=== PATIENT | female | born 1980 ===

== ENCOUNTER 2018-06-01 16:44 | Emergency (ER) | payer BC ==
[2018-06-01 17:04] VITALS: BMI 33.9
[2018-06-01] MEDS ORDERED: Sodium Chloride 0.9% 1,000 ML IV STA (17:07)
--- NOTE | 2018-06-01 17:21 | ED PDOC ---
Arrival/HPI - General Chief Complaint: Abdominal Pain Time Seen by Provider: 06/01/18 16:54 Historian: Patient - History of Present Illness Narrative History of Present Illness (Text): 06/01/18 17:17 38yo female iwth no pmhx who present with complaint of periumbilical pain x 7days. States she vomited the first day, pain began, but it resolved same day. Reports nausea. Describes pain as "soreness". Report normal BM. States she is having dyspepsia and flatus than usual. Denies fever, chills, urinary symptoms, chest pain, melena, hematemesis, hematochezia, sick contact, travel, any other complaint. She is s/p appendectomy. Past Medical History - Provider Review Nursing Documentation Reviewed: Yes - Cardiac Hx Cardiac Disorders: No - Pulmonary Hx Respiratory Disorders: No - Neurological Hx Neurological Disorder: No - HEENT Hx HEENT Disorder: No - Renal Hx Renal Disorder: No - Endocrine/Metabolic Hx Endocrine Disorders: No - Hematological/Oncological Hx Blood Disorders: No - Integumentary Hx Dermatological Disorder: No - Musculoskeletal/Rheumatological Hx Musculoskeletal Disorders: Yes Other/Comment: pinched nerve in neck - Gastrointestinal Hx Gastrointestinal Disorders: No - Genitourinary/Gynecological Hx Genitourinary Disorders: No - Psychiatric Hx Psychophysiologic Disorder: No Hx Substance Use: No - Surgical History Hx Appendectomy: Yes Family/Social History - Physician Review Nursing Documentation Reviewed: Yes Family/Social History: Unknown Family HX Smoking Status: Never Smoked Hx Alcohol Use: No Hx Substance Use: No Allergies/Home Meds Allergies/Adverse Reactions: Allergies No Known Allergies Allergy (Verified 06/01/18 16:46) Review of Systems - Physician Review All systems were reviewed & negative as marked: Yes - Review of Systems Constitutional: Normal Eyes: Normal ENT: Normal Respiratory: Normal Cardiovascular: Normal Gastrointestinal: Abdominal Pain, Nausea. absent: Constipation, Diarrhea, Vomiting, Hematochezia, Hematemesis Genitourinary Female: Normal Musculoskeletal: Normal Skin: Normal Neurological: Normal Endocrine: Normal Hemo/Lymphatic: Normal Psychiatric: Normal Physical Exam Vital Signs Reviewed: Yes Vital Signs Temp Pulse Resp BP Pulse Ox 06/01/18 21:45 98.2 F 78 16 110/76 98 06/01/18 20:15 98.7 F 74 18 113/68 97 06/01/18 18:29 99.4 F 110 H 18 126/90 98 06/01/18 16:47 98.0 F 80 17 122/84 97 Temperature: Afebrile Blood Pressure: Normal Pulse: Regular Respiratory Rate: Normal Appearance: Positive for: Well-Appearing, Non-Toxic, Comfortable Pain Distress: None Mental Status: Positive for: Alert and Oriented X 3 - Systems Exam Head: Present: Atraumatic, Normocephalic Pupils: Present: PERRL Extroacular Muscles: Present: EOMI Conjunctiva: Present: Normal Mouth: Present: Moist Mucous Membranes Neck: Present: Normal Range of Motion Respiratory/Chest: Present: Clear to Auscultation, Good Air Exchange. No: Respiratory Distress, Accessory Muscle Use Cardiovascular: Present: Regular Rate and Rhythm, Normal S1, S2. No: Murmurs Abdomen: Present: Tenderness (Mild periumbilical tenderness), Other (Soft). No : Distention, Peritoneal Signs, Rebound, Guarding, McBurney's Point Tender, Rovsing's Sign Present Back: Present: Normal Inspection Upper Extremity: Present: Normal Inspection. No: Cyanosis, Edema Lower Extremity: Present: Normal Inspection. No: Edema Neurological: Present: GCS=15, CN II-XII Intact, Speech Normal Skin: Present: Warm, Dry, Normal Color. No: Rashes Psychiatric: Present: Alert, Oriented x 3, Normal Insight, Normal Concentration Medical Decision Making ED Course and Treatment: 06/02/18 01:23 PT presented to ED for stated history. She was hemodynamically stable. Lab was reviewed Her pain was controlled in ED with medication. Abdominal/Pelvic CT IMPRESSION: 1. No acute findings. 2. Probable submucosal fibroid versus polyp in the endometrial canal. Ultrasound evaluation could be performed if indicated. On discusssion of the CT result, pt report history of fibroid. CXR was ordered secondary to CT finding and no obvious node was noted. This finding was DW the pt. she was given a copy of her CT and advised to f/u with her PMD for further outpt evalaution Pepcid was given for gastritis and she was referred to a GI - Lab Interpretations Lab Results: 06/01/18 17:41 06/01/18 17:41 Lab Results 06/01/18 18:28: Urine Color Yellow, Urine Appearance Clear, Urine pH 6.0, Ur Specific [place] >= 1.030, Urine Protein Negative, Urine Glucose (UA) Negative, Urine Ketones Negative, Urine Blood Negative, Urine Nitrate Negative, Urine Bilirubin Negative, Urine Urobilinogen 0.2, Ur Leukocyte Esterase Negative 06/01/18 17:41: Sodium 142, Potassium 4.0, Chloride 107, Carbon Dioxide 24, Anion Gap 16, BUN 11, Creatinine 0.8, Est GFR ( Amer) > 60, Est GFR (Non- Af Amer) > 60, Random Glucose 94, Calcium 8.9, Magnesium 1.9, Total Bilirubin 0.2, AST 21, ALT 21, Alkaline Phosphatase 68, Total Protein 7.2, Albumin 4.2, Globulin 3.0, Albumin/Globulin Ratio 1.4, Lipase 75 06/01/18 17:41: PT 11.0, INR 0.97, APTT 26.2 06/01/18 17:41: WBC 12.1 H, RBC 4.40, Hgb 11.1 L, Hct 34.9 L, MCV 79.3 L, MCH 25.2, MCHC 31.8, RDW 14.3, Plt Count 343, MPV 10.3, Gran % 65.4, Lymph % (Auto) 26.3, Crosby % (Auto) 5.5, Eos % (Auto) 2.3, Baso % (Auto) 0.5, Gran # 7.93 H, Lymph # (Auto) 3.2, Crosby # (Auto) 0.7 H, Eos # (Auto) 0.3, Baso # (Auto) 0.06 - RAD Interpretation Radiology Orders: 06/01/18 18:19 ABD & PELVIS IV CONTRAST ONLY [CT] Stat 06/01/18 20:41 CHEST PORTABLE [RAD] Stat - Medication Orders Current Medication Orders: Discontinued Medications Famotidine (Pepcid) 20 mg IVP STAT STA Stop: 06/01/18 17:08 Last Admin: 06/01/18 18:38 Dose: 20 mg IVP Administration Document 06/01/18 18:38 (Rec: 06/01/18 18:39 [email or web address]) Charges for Administration # of IVP Administrations 1 Sodium Chloride (Sodium Chloride 0.9%) 1,000 mls @ 1,000 mls/hr IV .Q1H STA Stop: 06/01/18 18:06 Last Admin: 06/01/18 17:50 Dose: 1,000 mls/hr eMAR Start Stop Document 06/01/18 17:50 SS (Rec: 06/01/18 17:50 SS [id number]) Intravenous Solution Start Date 06/01/18 Start Time 17:50 End Date 06/01/18 End time 18:50 Total Infusion Time 60 Morphine Sulfate (Morphine) 2 mg IVP STAT STA Stop: 06/01/18 20:19 Last Admin: 06/01/18 20:37 Dose: 2 mg MAR Pain Assessment Document 06/01/18 20:37 SH (Rec: 06/01/18 20:38 [email or web address] Pain Reassessment Is this a pain reassessment? No Sleep Is patient sleeping during reassessment? No Presence of Pain Presence of Pain Yes IVP Administration Document 06/01/18 20:37 SH (Rec: 06/01/18 20:38 [email or web address] Charges for Administration # of IVP Administrations 1 Ondansetron HCl (Zofran Inj) 4 mg IVP STAT STA Stop: 06/01/18 17:08 Last Admin: 06/01/18 18:40 Dose: 4 mg IVP Administration Document 06/01/18 18:40 SH (Rec: 06/01/18 18:40 [email or web address] Charges for Administration # of IVP Administrations 1 Disposition/Present on Arrival - Present on Arrival Any Indicators Present on Arrival: No History of DVT/PE: No History of Uncontrolled Diabetes: No Urinary Catheter: No History of Decub. Ulcer: No History Surgical Site Infection Following: None - Disposition Have Diagnosis and Disposition been Completed?: Yes Diagnosis: Abdominal pain Disposition: HOME/ ROUTINE Disposition Time: 21:30 Patient Plan: Discharge Condition: STABLE Discharge Instructions (ExitCare): Acute Abdomen (Belly Pain) Additional Instructions: Follow up with your Doctor/Medical Charge Entry Specialist Return to ED for any new or worsening symptoms Prescriptions: Famotidine [Pepcid] 40 mg PO DAILY #15 tab Referrals: Naresh Cardozo MD [Staff Provider] - Follow up with primary Forms: ATEME (Bulgarian)
[2018-06-01 18:11] LABS: BASO # 0.06 K/mm3 (0.0-2.0); BASO % 0.5 % (0.0-3.0); EOS # 0.3 (0.0-0.7); EOS % 2.3 % (1.5-5.0); GRAN # 7.93 (1.4-6.5); GRAN % 65.4 % (50.0-68.0); HEMOGLOBIN 11.1 g/dL (12.0-16.0); LYMPH # 3.2 (1.2-3.4); LYMPH % 26.3 % (22.0-35.0); MEAN CELL VOLUME 79.3 fl (80.0-105.0); MEAN CORPUSCULAR HEMOGLOBIN 25.2 pg (25.0-35.0); MEAN CORPUSCULAR HGB CONC 31.8 g/dl (31.0-37.0); MEAN PLATELET VOLUME 10.3 fl (7.0-11.0); MONO # 0.7 (0.1-0.6); MONO % 5.5 % (1.0-6.0); RBC 4.4 10^6/uL (3.5-6.1); RED CELL DISTRIBUTION WIDTH 14.3 % (11.5-14.5); WHITE BLOOD COUNT 12.1 10^3/ul (4.5-11.0)
[2018-06-01 18:17] LABS: INR 0.97; PARTIAL THROMBOPLASTIN TIME 26.2 Seconds (25.1-36.5)
[2018-06-01 18:20] LABS: ALB/GLOB RATIO 1.4 (1.1-1.8); ALBUMIN 4.2 g/dL (3.0-4.8); ALT/SGPT 21 U/L (7-56); AST/SGOT 21 U/L (14-36); BLOOD UREA NITROGEN 11 mg/dL (7-21); CALCIUM 8.9 mg/dL (8.4-10.5); GFR NON-AFRICAN AMERICAN > 60; LIPASE 75 U/L (23-300)
[2018-06-01 18:57] LABS: URINE BILIRUBIN NEGATIVE (NEGATIVE); URINE BLOOD NEGATIVE (NEGATIVE); URINE GLUCOSE (UA) NEGATIVE (NEGATIVE); URINE LEUKOCYTE ESTERASE NEGATIVE Leu/uL (NEGATIVE); URINE UROBILINOGEN 0.2 E.U./dL (<1 E.U./dL)
[2018-06-01 19:00] LABS: URINE APPEARANCE CLEAR (CLEAR); URINE COLOR YELLOW (YELLOW); URINE PROTEIN NEGATIVE mg/dL (<30 mg/dL)
[2018-06-01] MEDS ORDERED: Morphine 2 mg/ml ISec IVP STA (20:18)
[2018-06-01 21:46] VITALS: BP 110/76; PULSE 78; RESP 16; TEMP 98.2; O2SAT 98
--- NOTE | 2018-06-02 07:11 | CT ---
Date of service: 06/01/2018 PROCEDURE: CT Abdomen and Pelvis with contrast HISTORY: periumbilical pain COMPARISON: None. TECHNIQUE: Contrast dose: Radiation dose: Total exam DLP = 905 mGy-cm. This CT exam was performed using one or more of the following dose reduction techniques: Automated exposure control, adjustment of the mA and/or kV according to patient size, and/or use of iterative reconstruction technique. FINDINGS: LOWER THORAX: Unremarkable. LIVER: Unremarkable. No gross lesion or ductal dilatation. GALLBLADDER AND BILE DUCTS: Unremarkable. PANCREAS: Unremarkable. No gross lesion or ductal dilatation. SPLEEN: Unremarkable. ADRENALS: Unremarkable. No mass. KIDNEYS AND URETERS: Unremarkable. No hydronephrosis. No solid mass. VASCULATURE: Unremarkable. No aortic aneurysm. BOWEL: Unremarkable. No obstruction. No gross mural thickening. APPENDIX: Normal appendix. PERITONEUM: Unremarkable. No free fluid. No free air. LYMPH NODES: Unremarkable. No enlarged lymph nodes. BLADDER: Unremarkable. REPRODUCTIVE: Enlarged leiomyomatous uterus with possible submucosal fibroid or possible endometrial polyp. . BONES: No acute fracture. OTHER FINDINGS: None. IMPRESSION: Enlarged leiomyomatous uterus with possible submucosal fibroid or possible endometrial polyp. Correlate with hysterosonogram. .
--- NOTE | 2018-06-02 09:19 | RAD ---
Date of service: 06/01/2018 HISTORY: nodule on CT COMPARISON: No prior. FINDINGS: LUNGS: No active pulmonary disease. PLEURA: No significant pleural effusion identified, no pneumothorax apparent. CARDIOVASCULAR: Normal. OSSEOUS STRUCTURES: No significant abnormalities. VISUALIZED UPPER ABDOMEN: Normal. OTHER FINDINGS: None. IMPRESSION: No active disease.
--- NOTE | 2018-06-02 09:39 | CARD ---
APPROVED REPORT Date of service: 06/01/2018 EKG Measurement Heart [id number] NE [id number] <Conclusion> Normal sinus rhythm Normal ECG
== END 2018-06-01 21:46 | disposition home or self-care (01) ==
LOC: ED 16:44
DX: R10.33 Periumbilical pain (principal)
CPT/HCPCS: 71045; 74177; 80053; 81003; 83690; 83735; 85025; 85610; 85730; 93005; 96361; 96374; 96375; 99283; J2270; J2405; J7030; Q9967

== ENCOUNTER 2018-11-20 13:47 | Outpatient (CLI) | payer BC | END 2018-11-20 13:48 | disposition home or self-care (01) | LOC: RAD 13:47 | DX: R91.1 Solitary pulmonary nodule (principal) ==